=== PATIENT | male | born 1975 ===

== ENCOUNTER 2018-12-30 08:55 | Day surgery (SDC) | payer OTHER ==
[~2018-12-30 08:55] MED LIST: PROPOFOL INJ 200 MG/20 ML VIAL IV ONE
[2018-12-30 11:07] VITALS: BP 123/84
--- NOTE | 2018-12-30 11:44 | Operative Report ---
Operative Report DATE OF SURGERY: 12/30/18 Operative Report: The risks benefits and alternatives of the procedure explained to the patient in detail and informed consent is obtained.A GIF Olympus video scope was inserted into the patient's mouth and hypopharynx, the esophagus is identified intubated and insufflated ,the scope was then advanced through the esophagus stomach and duodenum, retroflexion maneuver is done, the esophagus stomach and first and second portions of the duodenum examined. PREOPERATIVE DIAGNOSIS: GERD, dysphagia POSTOPERATIVE DIAGNOSIS: Normal-appearing esophagus. Gastritis status post biopsy without Helicobacter pylori. Question esophageal spasm OPERATION: EGD with biopsy SURGEON: KATHERIN CALLES ANESTHESIA: LMAC TISSUE REMOVED OR ALTERED: As noted above COMPLICATIONS: None. ESTIMATED BLOOD LOSS: None. INTRAOPERATIVE FINDINGS: As noted above. PROCEDURE: Patient tolerated the procedure well. No immediate postprocedure complications are noted. Patient is discharged in good condition. Discharge date 12/30/2018. Discharge diet: Regular. Discharge activity: Regular. 2 to 3-week follow-up to discuss findings. Patient is instructed to call the office or proceed to the emergency room should he be any further questions. Wait on the pathology.
== END 2018-12-30 11:14 | disposition home or self-care (01) ==
LOC: END 08:55
PROVIDERS: ATTEND Internal Medicine Gastroenterology
DX: K21.9 Gastro-esophageal reflux disease without esophagitis (principal); K29.50 Unspecified chronic gastritis without bleeding; J45.40 Moderate persistent asthma, uncomplicated; I10 Essential (primary) hypertension
CPT/HCPCS: 88342 ×2; 88305 ×2; J2704; 43239